=== PATIENT | female | born 1985 | race American Indian/Alaskan Native ===

== ENCOUNTER 2019-03-19 20:46 | Inpatient (IN) | payer MEDICAID ==
[2019-03-19] MEDS ORDERED: LACTATED RINGERS 1,000 ML ONE (22:16)
[2019-03-19] MEDS ORDERED: LACTATED RINGERS 1,000 ML IV SCH (23:45)
--- NOTE | 2019-03-19 23:50 | History and Physical Report ---
History of Present Illness Date of examination: 03/19/19 Date of admission: 03/19/19 20:46 Chief complaint: 33 year old female presents to Labor and Delivery for scheduled induction of labor. History of present illness: 33 year old female presents to Labor and Delivery for scheduled induction of labor due to obesity. records are available. 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 LMP 06/17/2019. EDC 03/24/2019. EGA 39 weeks, 2 days gestation. significant for obesity (co-managed with [facility]), anemia (supplemented with oral iron), late presentation for care. labs are as follows: O+, antibody screen negative, rubella immune, RPR nonreactive, hepatitis B surface antigen negative, HIV negative, cystic fibrosis screen negative, sickle cell screen negative, GBS negative, chlamydia negative, gonorrhea negative, diabetes screen 91. Patient reports active movement. She denies leaking of fluid or vaginal bleeding. Patient states she has been having irregular contractions; states membranes were stripped in the office today and earlier this week. 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 denies: smoking, alcohol abuse, prescription drug abuse, IV drug use - Obstetrical History Expected Date of Delivery: 03/24/19 Actual Gestation: 39 Week(s) 3 Day(s) : 2 Para: 0 Hx # Term Pregnancies: 1 Number of Pregnancies: 0 Spontaneous Abortions: 1 Induced : 0 Number of Living Children: 0 Medications and Allergies Allergies Allergy/AdvReac Type Severity Reaction Status Date / Time No Known Allergies Allergy Verified 03/19/19 22:24 Active Meds: Active Medications Lactated Ringer's (Lactated Ringers) 1,000 mls @ 125 mls/hr IV DIRECT BIB Valacyclovir HCl (Valtrex) 1,000 mg PO BID BIB Review of Systems All systems: negative (contractions) - Vital Signs Vital signs: Vital Signs Pulse Pulse Ox 94 H 97 03/19/19 20:59 03/19/19 20:59 Temp Pulse Resp BP Pulse Ox 75 124/74 99 03/19/19 23:39 03/19/19 21:00 03/19/19 23:39 - Physical Exam Abdomen: Positive: normal appearance, soft. Negative: distention, tenderness, guarding, rigidity Genitourinary (Female): Positive: perineal/vulvar lesions (vulvar lesions noted on right labia, resemble herpes; culture taken and Valtrex started) Vagina: Positive: normal moisture Uterus: Positive: enlarged Anus/Rectum: Positive: normal perianal skin Extremities: Positive: normal - Obstetrical FHR: category 1 Uterine Contraction Monitor Mode: External Cervical Dilatation: 2 Cervical Effacement Percentage: 60 station: -3 Uterine Contraction Pattern: Irregular Uterine Contraction Intensity: Mild Results Result Diagrams: 03/19/19 22:15 All other labs normal. Assessment and Plan A: at 39 weeks, 2 days gestation. Obesity class 3. Vulvar lesion. GBS negative. P: Admit. Continuous EFM. Herpes culture (done and sent to lab). Valtrex 1 gram po BID. Consulted with Dr. Hare re: this patient. Dr. Hare recommends section due to presence of vulvar lesion. Discussed this plan with patient and . Patient and in agreement with delivery by section.
[2019-03-19 23:57] LABS: Basophils % (Auto) 0.5 % (0.0-1.8); Eosinophils # (Auto) 0.2 K/mm3 (0.0-0.4); Eosinophils % (Auto) 1.9 % (0.0-4.3); Hematocrit 29.1 % (30.3-42.9); Hemoglobin 10.1 gm/dl (10.1-14.3); Lymphocytes # (Auto) 1.4 K/mm3 (1.2-5.4); Lymphocytes % (Auto) 17.7 % (13.4-35.0); Mean Corpuscular HGB Conc 35 % (30-34); Mean Corpuscular Volume 87 fl (79-97); Monocytes # (Auto) 0.7 K/mm3 (0.0-0.8); Monocytes % (Auto) 8.4 % (0.0-7.3); Platelet Count 251 K/mm3 (140-440); Red Blood Count 3.36 M/mm3 (3.65-5.03); Red Cell Distribution Width 14.6 % (13.2-15.2)
[2019-03-20] MEDS ORDERED: REGLAN IV ONE (00:27)
[2019-03-20] MEDS ORDERED: PEPCID IV ONE (00:27)
[2019-03-20] MEDS ORDERED: BICITRA PO ONE (00:27)
[2019-03-20] MEDS ORDERED: ANCEF/STERILE WATER 2 GM/20 ML 2 GM/20 ML SYRINGE IV NR (01:00)
[2019-03-20] MEDS ORDERED: PITOCin/NS 20 UNIT/1000ML DRIP 20 UNITS/1,000 ML BAG IV SCH ×2 (01:00→04:00)
[2019-03-20] MEDS ORDERED: LACTATED RINGERS 1,000 ML IV SCH (01:00)
[2019-03-20] MEDS: VALTREX PO SCH ×3 (01:14→21:42)
[2019-03-20] MEDS ORDERED: SUBLIMAZE ONE (02:13)
[2019-03-20] MEDS ORDERED: ZOFRAN ONE (02:13)
[2019-03-20] MEDS ORDERED: LACTATED RINGERS 1,000 ML ONE (02:42)
[2019-03-20] MEDS ORDERED: TORADOL ONE (03:07)
--- NOTE | 2019-03-20 03:30 | Operative Report ---
Operative Report Operative Report: Date of procedure: 03/20/2019 Pre-operative diagnosis: 1. Intrauterine at 39-3/7 weeks in labor 2 . HSV outbreak Post-operative diagnosis: Same Procedure name(s): Primary low transverse section Surgeon: Daren Hare MD Booster Pump Oiler: None Anesthesia: Spinal anesthesia by Tu Hare CRNA EBL: 450 mls Findings: A 2859 g male Apgars 8 at 1 minute and 9 at 5 minutes. Clear amniotic fluid. Normal uterus. Normal tubes and ovaries bilaterally. Procedure: After the patient was prepped and draped in usual sterile fashion, and after satisfactory level of epidural anesthesia was obtained, the skin knife was used to make a transverse skin incision. The incision was excised down to layer of the fascia, which was nicked in the midline and extended laterally using the Bovie cautery. The rectus muscles were dissected off the rectus fascia both superiorly and inferiorly. The rectus bellies in the midline, and the peritoneum was entered under direct visualization. The peritoneal incision was extended superiorly and inferiorly. A bladder flap was created and the bladder blade was then placed. The uterus was scored in a curvilinear linear fashion, entered in the midline revealing clear amniotic fluid. The 's head was delivered onto the surgical field, and the oropharynx and nasopharynx were bulb suctioned. The rest of the 's body was delivered, cord was doubly clamped and cut and the was handed to the waiting respiratory team. Cord blood was obtained. The placenta was manually removed from the uterus, and the uterus removed from its normal anatomical position. After gentle uterine lavage, the incision was inspected and found to be without extensions. It was then closed in 2 layers using 0 Vicryl suture in a running interlocking fashion, the second layer imbricating the first. After good hemostasis was achieved, copious amounts or irrigation was performed, and the gutters were suctioned free of blood and blood clots. Tisseel sealant was sprayed across the uterine incision. The uterus was then returned to its normal anatomical position, and after excellent hemostasis assured, the peritoneum was re-approximated using 3-0 Vicryl suture in a running interlocking fashion, and then the rectus muscles were re-approximated using 3-0 Vicryl suture in a [id number] configuration. The fascia was then re-approximated using 0 Vicryl suture in running interlocking fashion. The subcutaneous layer was made hemostatic using Bovie cautery, the Tisseel sealant was sprayed across the fascial incision and the skin edges re-approximated using 4-0 Vicryl suture in a sub-cuticular fashion. Patient tolerated the procedure well was transported to recovery in stable condition.
[2019-03-20] MEDS ORDERED: LANSINOH TP PRN (03:31)
[2019-03-20] MEDS ORDERED: NARCAN 0.4 MG/1 ML IV PRN ×2 (03:31→03:43)
[2019-03-20] MEDS ORDERED: TUCKS PAD TP PRN (03:31)
[2019-03-20] MEDS ORDERED: TYLENOL PO PRN (03:31)
[2019-03-20] MEDS ORDERED: ZOFRAN IV PRN ×2 (03:31→03:43)
[2019-03-20] MEDS ORDERED: NORCO 5/325 PO PRN (03:31)
[2019-03-20] MEDS ORDERED: PHENERGAN PR PRN ×2 (03:31→03:43)
--- NOTE | 2019-03-20 03:42 | Anesthesia Consultation ---
Anesthesia Consult and Med Hx - Airway Anesthetic Teeth Evaluation: Good ROM Head & Neck: Adequate Mental/Hyoid Distance: Adequate Mallampati Class: Class II Intubation Access Assessment: Probably Good - Pulmonary Exam CTA: Yes - Cardiac Exam Cardiac Exam: RRR - Pre-Operative Health Status ASA Pre-Surgery Classification: ASA2 Proposed Anesthetic Plan: Spinal - Pulmonary Hx Asthma: No - Cardiovascular System Hx Hypertension: No - Central Nervous System Hx Seizures: No Hx Psychiatric Problems: No - Endocrine Hx Renal Disease: No Hx Hypothyroidism: No Hx Hyperthyroidism: No - Hematic Hx Anemia: No Hx Sickle Cell Disease: No - Other Systems Hx Alcohol Use: No
[2019-03-20] MEDS ORDERED: DILAUDID IV PRN (03:43)
[2019-03-20] MEDS ORDERED: BENADRYL IV PRN (03:43)
[2019-03-20] MEDS ORDERED: PHENERGAN PO PRN (03:43)
--- NOTE | 2019-03-20 03:43 | Post Anesthesia Evaluation ---
- Post Anesthesia Evaluation Patient Participated: Yes Airway Patent: Yes Stable Respiratory Function: Yes Nausea/Vomiting: No Temp > 96.8F: Yes Pain Manageable: Yes Adequeate Hydration: Yes Anesthesia Complications: No Block Receding Appropriately: Yes Patient on Ventilator: No
--- NOTE | 2019-03-20 03:43 | Anesthesia Day of Surgery ---
Anesthesia Day of Surgery - Day of Surgery Patient Examined: Yes Patient H&P Reviewed: Yes Patient is NPO: Yes Beta Blockers: No Cardiac Clearance: No Pulmonary Clearance: No Juan Alberto's Test: N/A
[2019-03-20] MEDS ORDERED: D5LR 1,000 ML IV SCH (04:00)
[2019-03-20] MEDS ORDERED: ANCEF/NS 1 GM/50 ML 1 GM/50 ML BAG IV SCH (04:00)
[2019-03-20] MEDS ORDERED: SODIUM CHLORIDE FLUSH SYRINGE 10 ML IV NR ×2 (04:00)
[2019-03-20] MEDS: TORADOL IV PRN ×2 (05:52→17:49)
[2019-03-20] MEDS: ANCEF/NS 1 GM/50 ML 1 GM/50 ML BAG IV SCH ×2 (08:08→15:27)
[2019-03-20] MEDS: PRENATAL VITAMIN PO SCH (10:09)
[2019-03-20] MEDS: FEOSOL PO SCH (10:09)
--- NOTE | 2019-03-20 11:55 | Progress Note ---
Assessment and Plan A: /postop day of delivery S/P primary low transverse section. Anemia due to and blood loss; pt. receiving oral iron supplementation. P: Encouraged patient to ambulate today. Advance diet as tolerated when passing gas. Remove Linares. Continue oral iron. Subjective - Subjective Date of service: 03/20/19 Principal diagnosis: /postop day of delivery S/P LTCS Interval history: /postop day of delivery S/P primary low transverse section. Patient is doing well. Tolerating a liquid diet. Denies nausea or vomiting. Still has Linares catheter. Has not yet been out of bed to ambulate. No flatus yet. Reports small amount of lochia. Patient denies headache, chest pain, cough, shortness of breath, abdominal pain, leg pain, or heavy bleeding. Patient reports: appetite normal, pain well controlled, no flatus, no nauseated [place]: doing well Objective - Vital Signs Latest vital signs: Vital Signs Temp Pulse Resp BP BP Pulse Ox 03/20/19 07:10 97.8 F 66 18 127/64 03/20/19 05:52 20 03/20/19 05:31 97.4 F L 64 20 118/72 100 03/20/19 01:17 68 98 03/20/19 01:12 67 98 03/20/19 00:48 71 123/70 03/20/19 00:45 98.8 F 71 16 123/70 03/19/19 23:59 80 96 03/19/19 23:54 75 97 03/19/19 23:49 74 98 03/19/19 23:44 76 98 03/19/19 23:39 75 99 03/19/19 23:34 81 97 03/19/19 23:31 72 94 03/19/19 23:29 78 96 03/19/19 23:24 75 97 03/19/19 23:19 79 98 03/19/19 23:14 77 97 03/19/19 23:09 78 96 03/19/19 23:04 76 95 03/19/19 22:59 79 98 03/19/19 22:54 74 97 03/19/19 22:49 84 97 03/19/19 22:44 86 96 03/19/19 22:40 81 94 03/19/19 22:39 75 96 03/19/19 22:34 76 96 03/19/19 22:29 75 97 03/19/19 22:24 75 97 03/19/19 22:19 88 97 03/19/19 22:14 71 96 03/19/19 22:09 83 97 03/19/19 22:04 89 97 03/19/19 21:59 83 97 03/19/19 21:54 80 96 03/19/19 21:49 81 96 03/19/19 21:44 81 95 03/19/19 21:39 82 95 03/19/19 21:34 80 96 03/19/19 21:29 72 97 03/19/19 21:24 83 97 03/19/19 21:19 79 96 03/19/19 21:14 81 97 03/19/19 21:09 82 97 03/19/19 21:04 88 97 03/19/19 21:00 80 124/74 03/19/19 20:59 94 H 97 Intake and Output 03/19/19 03/20/19 03/20/19 23:59 07:59 15:59 Intake Total 480 Balance 480 Intake: Oral 480 Other: Total, Intake Amount 480 Weight 127.006 kg Estimated Blood Loss 450 Patient Weight 03/20/19 23:59 Weight 127.006 kg - Exam Cardiovascular: Present: Regular rate, Normal S1, Normal S2 Lungs: Present: Clear to auscultation Abdomen: Present: normal appearance, soft, normal bowel sounds. Absent: distention, tenderness, guarding, rigidity Uterus: Present: normal, firm, fundal height below umbilicus. Absent: bogginess, tenderness Extremities: Present: normal. Absent: tenderness, edema Incision: Present: normal, dry, intact, dressed - Labs Labs: Abnormal lab results 03/19/19 Range/Units 22:15 RBC 3.36 L (3.65-5.03) M/mm3 Hct 29.1 L (30.3-42.9) % MCHC 35 H (30-34) % [place] % (Auto) 8.4 H (0.0-7.3) % Seg Neutrophils % 71.5 H (40.0-70.0) %
[2019-03-20] MEDS: PERCOCET 5/325 PO PRN ×2 (14:38→22:55)
[2019-03-20 15:42] LABS: Hematocrit 30.4 % (30.3-42.9); Hemoglobin 10.1 gm/dl (10.1-14.3)
[2019-03-21] MEDS ORDERED: M-M-R II VACCINE SUB-Q ONE (03:32)
[2019-03-21] MEDS ORDERED: BOOSTRIX IM ONE (03:32)
[2019-03-21] MEDS: IBUPROFEN PO PRN ×2 (04:07→18:26)
[2019-03-21] MEDS: PERCOCET 5/325 PO PRN ×2 (06:34→14:07)
[2019-03-21] MEDS: VALTREX PO SCH (09:54)
[2019-03-21] MEDS: FEOSOL PO SCH (09:54)
[2019-03-21] MEDS: PRENATAL VITAMIN PO SCH (09:54)
--- NOTE | 2019-03-21 12:38 | Progress Note ---
Assessment and Plan A: /postop day 1 S/P primary low transverse section. Anemia secondary to and blood loss. P: Supplement with oral iron. Encouraged patient to ambulate today. Subjective - Subjective Date of service: 03/21/19 Principal diagnosis: day 1 S/P primary low transverse section Interval history: /postop day 1 S/P primary low transverse section. Patient is doing well. She reports a small amount of lochia. Patient is voiding without difficulty, passing gas, ambulating well, and tolerating a regular diet without nausea or vomiting. Patient denies headache, chest pain, cough, shortness of breath, leg pain, abdominal pain, heavy vaginal bleeding, or dizziness. Patient reports: appetite normal, voiding normally, pain well controlled, flatus, ambulating normally, no dizzy ambulation, no nauseated [place]: doing well Objective - Vital Signs Latest vital signs: Vital Signs Temp Pulse Resp BP Pulse Ox 03/21/19 08:23 98.4 F 73 24 121/72 93 03/20/19 23:49 99.0 F 71 18 107/57 100 03/20/19 20:08 32.1 F L 72 18 114/69 99 03/20/19 16:49 98.1 F 64 20 118/62 100 Intake and Output 03/20/19 03/21/19 03/21/19 23:59 07:59 15:59 Intake Total 600 Output Total 750 300 Balance -750 300 Intake: Intake, Free Water 600 Output: Urine 750 300 Indwelling Catheter 450 Void 300 300 Other: Total, Output Amount 300 300 # Voids Indwelling Catheter 1 - Exam Cardiovascular: Present: Regular rate, Normal S1, Normal S2 Lungs: Present: Clear to auscultation Abdomen: Present: normal appearance, soft, normal bowel sounds. Absent: distention, tenderness, guarding, rigidity Uterus: Present: normal, firm, fundal height below umbilicus. Absent: bogginess, tenderness Extremities: Present: normal, edema (mild pedal edema bilaterally). Absent: tenderness Incision: Present: normal, dry, intact
[2019-03-22] MEDS: IBUPROFEN PO PRN ×2 (00:34→17:49)
[2019-03-22] MEDS: MILK OF MAGNESIA PO PRN (00:34)
[2019-03-22] MEDS: SENOKOT PO PRN (00:34)
[2019-03-22] MEDS: VALTREX PO SCH ×2 (00:35→10:20)
[2019-03-22] MEDS: PERCOCET 5/325 PO PRN ×3 (00:36→17:49)
[2019-03-22] MEDS: FEOSOL PO SCH (10:20)
[2019-03-22] MEDS: PRENATAL VITAMIN PO SCH (10:20)
--- NOTE | 2019-03-22 10:55 | Progress Note ---
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 as needed or in 1 week for incision check Subjective - Subjective Date of service: 03/22/19 Principal diagnosis: POD #2; s/p Primary LTCS Interval history: see H&P, OP Report and PP/HANDLE SANDER OPERATOR Progress Notes Patient reports: appetite normal, voiding normally, pain well controlled, flatus, ambulating normally, no dizzy ambulation, no bowel movement [place]: doing well, other (breast and bottle feeding) Objective - Vital Signs Latest vital signs: Vital Signs Temp Pulse Resp BP BP Pulse Ox 03/22/19 08:03 99.2 F 73 20 136/84 98 03/22/19 00:15 98.7 F 82 16 125/81 03/21/19 16:26 98.5 F 75 20 139/85 100 Intake and Output 03/21/19 03/22/19 03/22/19 23:59 07:59 15:59 Intake Total 120 Balance 120 Intake: Oral 120 Other: Total, Intake Amount 120 - Exam Cardiovascular: Present: Regular rate Lungs: Present: Clear to auscultation Abdomen: Present: normal appearance, soft Vulva: both: normal Uterus: Present: normal, firm, fundal height below umbilicus Extremities: Present: normal Incision: Present: normal, dry, intact, other (steri strips in place) Comments: scant lochia
--- NOTE | 2019-03-22 11:00 | Discharge Summary ---
Providers - Providers Date of Admission: 03/19/19 20:46 Date of discharge: 03/23/19 Attending physician: CARMELITA RHODES MD Primary care physician: CARMELITA RHODES MD Hospitalization Reason for admission: induction of labor, IUP at term Delivery: Procedure: primary low transverse Episiotomy: none Laceration: none Incision: normal, dry, intact, other (steri strips in place) complications: none Discharge diagnosis: IUP at term delivered [place] baby: male Hospital course: Uncomplicated Condition at discharge: Stable Disposition: DC-01 TO HOME OR SELFCARE - Discharge Diagnoses (1) S/P primary low transverse Status: Acute Comment: Wound care instructions given Plan - Discharge Medications Prescriptions: Ferrous Sulfate [Feosol 325 MG tab] 325 mg PO BID #60 tablet Ibuprofen [Motrin] 800 mg PO Q8HR PRN #30 tablet PRN Reason: Pain, Mild (1-3) HYDROcodone/APAP 5-325 [[place] 5/325] 1 each PO Q6HR PRN #30 tablet PRN Reason: Pain Pnv No.95/Ferrous Fum/Folic AC [Prenavite Tablet] 1 each PO DAILY #30 tablet - Provider Discharge Summary Activity: routine, no sex for 6 weeks, no heavy lifting 4 weeks, no strenuous exercise Diet: routine Instructions: routine Additional instructions: [] Smoking cessation referral if applicable(refer to patient education folder for contact #) [] Refer to [facility] Booklet Call your doctor immediately for: * Fever > 100.5 * Heavy vaginal bleeding ( >1 pad per hour) * Severe persistent headache * Shortness of breath * Reddened, hot, painful area to leg or breast * Drainage or odor from incision. * Keep incision clean and dry at all times and follow doctor's instructions regarding bathing/showering - Follow up plan Follow up: CARMELITA RHODES MD [Primary Care Provider] - 7 Days (Follow up at [facility] Cycle THERAPEUTIC RADIOLOGIST as needed or in 1 week for incision check)
[2019-03-23] MEDS: PERCOCET 5/325 PO PRN ×2 (00:35→10:25)
[2019-03-23] MEDS: SENOKOT PO PRN (00:35)
[2019-03-23] MEDS: MILK OF MAGNESIA PO PRN (00:35)
[2019-03-23] MEDS: IBUPROFEN PO PRN ×2 (00:36→10:25)
[2019-03-23] MEDS: VALTREX PO SCH ×2 (00:37→10:25)
[2019-03-23 07:41] VITALS: BP 116/79
[2019-03-23] MEDS: PRENATAL VITAMIN PO SCH (10:25)
[2019-03-23] MEDS: FEOSOL PO SCH (10:25)
== END 2019-03-23 13:30 | disposition home or self-care (01) | DRG 765 ==
LOC: LD 20:46 → OB 03-20 05:20
PROVIDERS: ADMIT Obstetrics & Gynecology; ATTEND Obstetrics & Gynecology
PROC: 10D00Z1 Extraction of Products of Conception, Low, Open Approach (ICD-10-PCS; principal; 2019-03-20)
PROC: 3E0234Z Introduction of Serum, Toxoid and Vaccine into Muscle, Percutaneous Approach (ICD-10-PCS; 2019-03-21)
DX: O99.214 Obesity complicating childbirth (principal); B00.89 Other herpesviral infection; E66.01 Morbid (severe) obesity due to excess calories; O99.02 Anemia complicating childbirth; D50.0 Iron deficiency anemia secondary to blood loss (chronic); Z3A.39 39 weeks gestation of pregnancy; Z37.0 Single live birth; Z71.3 Dietary counseling and surveillance; Z90.49 Acquired absence of other specified parts of digestive tract; Z82.49 Family history of ischemic heart disease and other diseases of the circulatory system; Z83.3 Family history of diabetes mellitus; Z82.3 Family history of stroke; Z80.9 Family history of malignant neoplasm, unspecified; Z23 Encounter for immunization
CPT/HCPCS: 36415; 85014; 85018; 85025; 86592; 86850; 86900; 86901; 87255; 87529; G0378; C9250; J0690; J1170; J1200; J1885; J2405; J2590; J2765; J3010; J7120; J7121